=== PATIENT | female | born 1995 | race Two or more races ===

== ENCOUNTER → 2024-04-07 | Outpatient (CLI) | payer BC, SELFPAY ==
[2024-04-07 13:50] LABS: Basophils # (Auto) 0.1 Thou/mm3 (0.0-0.2); Basophils % (Auto) 1 % (0-2.5); Eosinophils # (Auto) 0.2 Thou/mm3 (0.0-0.5); Eosinophils % (Auto) 4 % (0-10); Hematocrit 28.3 % (36.0-46.0); Immature Granulocytes % (Auto) 0 % (0-0); Immature Granulocytes Auto 0.01 Thou/mm3 (0.00-0.00); Lymphocytes # (Auto) 1.7 Thou/mm3 (1.0-4.8); Lymphocytes % (Auto) 32 % (10-50); Mean Corpuscular HGB Conc 29.3 g/dl (31.0-37.0); Mean Corpuscular Hemoglobin 18.5 pg (25.0-35.0); Mean Corpuscular Volume 63 fL (80-100); Monocytes # (Auto) 0.4 Thou/mm3 (0.0-0.8); Monocytes % (Auto) 8 % (0-12); Neutrophils # (Auto) 2.8 Thou/mm3 (1.8-7.7); Neutrophils % (Auto) 54 % (37-80); Nucleated Red Blood Cell % 0 /100 WBC (0); Platelet Count 546 Thou/mm3 (140-440); RDW Standard Deviation 40.5 fL (36.4-46.3); Red Blood Count 4.48 Miln/mm3 (4.00-5.20); White Blood Count 5.2 Thou/mm3 (3.6-11.0)
[2024-04-07 13:53] LABS: Anion Gap 8 (7-16); BUN/Creatinine Ratio 14 Ratio (12-20); Blood Urea Nitrogen 10 mg/dL (9-23); Calcium 8.6 mg/dL (8.3-10.6); Chloride 105 mMol/L (98-107); Creatinine (Component) 0.7 mg/dL (0.6-1.3); Glucose 158 mg/dL (74-106); Osmolality,Calculated 279 (275-295); Potassium 4.2 mMol/L (3.4-5.1); Sodium 139 mMol/L (136-145); eGFR > 60 See Note
[2024-04-07 13:57] LABS: Hemoglobin 8.3 g/dL (12.0-16.0)
[2024-04-07 14:01] LABS: Folate 16.11 ng/mL (>5.38); Vitamin B12 331 pg/mL (211-911); Vitamin D 25 Hydroxy Total 7.8 ng/mL (7.3-40.2)
[2024-04-07 14:23] LABS: Ferritin 3 ng/mL (7.3-270.7); Iron 17 mcg/dL (50-170); Percent Iron Saturation 3 % (20-55); Total Iron Binding Capacity 485 mcg/dL (250-425); Unsaturated Iron Binding 468 (225-295)
== END | disposition home or self-care (01) ==
LOC: COPL 12:35
PROVIDERS: PCP Family Medicine; Referring Provider Family Medicine; Visit Provider Family Medicine
DX: D50.8 Other iron deficiency anemias (principal); R53.83 Other fatigue
CPT/HCPCS: 36415; 80048; 82306; 82607; 82728; 82746; 83540; 83550; 85025

== ENCOUNTER → 2024-04-29 | Outpatient (CLI) | payer BC, MEDICAID, SELFPAY ==
[2024-04-29 09:52] VITALS: BP 105/61; PULSE 87; RESP 14; TEMP 36.8; O2SAT 100; BMI 27.1
[2024-04-29] MEDS: ferumoxytoL (NON-ESRD) 510 MG in SODIUM CHLORIDE 0.9% 100 ML 234 MG IV (10:14)
[2024-04-29 11:14] VITALS: BP 108/64; PULSE 75; RESP 15; TEMP 36.6; O2SAT 100
== END | disposition home or self-care (01) ==
PROVIDERS: PCP Family Medicine; Referring Provider Family Medicine; Visit Provider Family Medicine
PROC: (CPT 96365; principal; 2024-04-29 09:30)
DX: D50.8 Other iron deficiency anemias (principal); K91.89 Other postprocedural complications and disorders of digestive system
CPT/HCPCS: 96365; J7050; Q0138

== ENCOUNTER → 2024-05-06 | Outpatient (CLI) | payer BC, MEDICAID, SELFPAY ==
[2024-05-06 09:30] VITALS: BP 128/67; PULSE 97; RESP 16; TEMP 36.6; O2SAT 100; BMI 26.9
[2024-05-06] MEDS: ferumoxytoL (NON-ESRD) 510 MG in SODIUM CHLORIDE 0.9% 100 ML 234 MG IV (09:55)
[2024-05-06 11:00] VITALS: BP 116/75; PULSE 77; RESP 16; TEMP 36.6; O2SAT 100
== END | disposition home or self-care (01) ==
PROVIDERS: PCP Family Medicine; Referring Provider Family Medicine; Visit Provider Family Medicine
PROC: (CPT 96365; principal; 2024-05-06 09:00)
DX: D50.8 Other iron deficiency anemias (principal); K91.89 Other postprocedural complications and disorders of digestive system
CPT/HCPCS: 96365; J7050; Q0138

== ENCOUNTER → 2024-05-24 | Outpatient (CLI) | payer BC, MEDICAID, SELFPAY ==
[2024-05-24 15:15] LABS: Basophils # (Auto) 0.1 Thou/mm3 (0.0-0.2); Basophils % (Auto) 1 % (0-2.5); Eosinophils # (Auto) 0.3 Thou/mm3 (0.0-0.5); Eosinophils % (Auto) 5 % (0-10); Hematocrit 36.3 % (36.0-46.0); Hemoglobin 11.5 g/dL (12.0-16.0); Immature Granulocytes % (Auto) 0 % (0-0); Immature Granulocytes Auto 0.01 Thou/mm3 (0.00-0.00); Lymphocytes # (Auto) 1.8 Thou/mm3 (1.0-4.8); Lymphocytes % (Auto) 28 % (10-50); Mean Corpuscular HGB Conc 31.7 g/dl (31.0-37.0); Mean Corpuscular Hemoglobin 24.3 pg (25.0-35.0); Mean Corpuscular Volume 77 fL (80-100); Monocytes # (Auto) 0.4 Thou/mm3 (0.0-0.8); Monocytes % (Auto) 7 % (0-12); Neutrophils # (Auto) 3.7 Thou/mm3 (1.8-7.7); Neutrophils % (Auto) 59 % (37-80); Nucleated Red Blood Cell % 0 /100 WBC (0); Platelet Count 383 Thou/mm3 (140-440); Red Blood Count 4.73 Miln/mm3 (4.00-5.20); White Blood Count 6.3 Thou/mm3 (3.6-11.0)
[2024-05-24 15:55] LABS: Alanine Aminotransferase 15 U/L (10-49); Albumin, Serum 4.1 gm/dL (3.5-5.0); Albumin/Globulin Ratio 1.5 (1.2-2.2); Alkaline Phosphatase 142 U/L (46-116); Anion Gap 9 (7-16); Aspartate Amino Transferase 22 U/L (0-34); BUN/Creatinine Ratio 20 Ratio (12-20); Bilirubin,Total 0.3 mg/dL (0.3-1.2); Blood Urea Nitrogen 14 mg/dL (9-23); Calcium 9.8 mg/dL (8.3-10.6); Calcium (Corrected) 9.8 mg/dL (8.5-10.1); Carbon Dioxide 27.3 mMol/L (20.0-31.0); Chloride 107 mMol/L (98-107); Creatinine (Component) 0.7 mg/dL (0.6-1.3); Globulin 2.7 gm/dL (2.3-3.5); Glucose 70 mg/dL (74-106); Osmolality,Calculated 283 (275-295); Potassium 4.2 mMol/L (3.4-5.1); Sodium 143 mMol/L (136-145); Total Protein 6.8 gm/dL (5.7-8.2); eGFR > 60 See Note
[2024-05-24 19:02] LABS: Ferritin 66 ng/mL (7.3-270.7); Iron 81 mcg/dL (50-170); Total Iron Binding Capacity 367 mcg/dL (250-425)
== END | disposition home or self-care (01) ==
LOC: COPL 14:03
PROVIDERS: PCP Family Medicine; Referring Provider Family Medicine; Visit Provider Family Medicine
DX: D50.8 Other iron deficiency anemias (principal)
CPT/HCPCS: 36415; 80053; 82728; 83540; 83550; 85025

== ENCOUNTER → 2024-07-13 | Outpatient (CLI) | payer BC, MEDICAID, SELFPAY ==
[2024-07-13 10:18] LABS: Basophils # (Auto) 0.1 Thou/mm3 (0.0-0.2); Basophils % (Auto) 1 % (0-2.5); Eosinophils # (Auto) 0.3 Thou/mm3 (0.0-0.5); Eosinophils % (Auto) 5 % (0-10); Hemoglobin 12.7 g/dL (12.0-16.0); Immature Granulocytes % (Auto) 0 % (0-0); Immature Granulocytes Auto 0.01 Thou/mm3 (0.00-0.00); Lymphocytes # (Auto) 1.7 Thou/mm3 (1.0-4.8); Lymphocytes % (Auto) 31 % (10-50); Mean Corpuscular HGB Conc 32.6 g/dl (31.0-37.0); Mean Corpuscular Hemoglobin 27.2 pg (25.0-35.0); Mean Corpuscular Volume 84 fL (80-100); Monocytes # (Auto) 0.6 Thou/mm3 (0.0-0.8); Monocytes % (Auto) 10 % (0-12); Neutrophils # (Auto) 2.9 Thou/mm3 (1.8-7.7); Neutrophils % (Auto) 53 % (37-80); Nucleated Red Blood Cell % 0 /100 WBC (0); Platelet Count 355 Thou/mm3 (140-440); Red Blood Count 4.67 Miln/mm3 (4.00-5.20); White Blood Count 5.5 Thou/mm3 (3.6-11.0)
[2024-07-13 10:42] LABS: Ferritin 8 ng/mL (7.3-270.7); Iron 41 mcg/dL (50-170); Percent Iron Saturation 10 % (20-55); Total Iron Binding Capacity 403 mcg/dL (250-425); Unsaturated Iron Binding 362 (225-295)
[2024-07-13 10:45] LABS: Vitamin B12 340 pg/mL (211-911)
== END | disposition home or self-care (01) ==
LOC: COPL 09:24
PROVIDERS: PCP Family Medicine; Referring Provider Family Medicine; Visit Provider Family Medicine
DX: D50.8 Other iron deficiency anemias (principal); R53.83 Other fatigue
CPT/HCPCS: 36415; 82607; 82728; 83540; 83550; 85025

== ENCOUNTER → 2024-09-28 | Outpatient (CLI) | payer BC, SELFPAY ==
[2024-09-28 16:11] LABS: Basophils # (Auto) 0.0 Thou/mm3 (0.0-0.2); Basophils % (Auto) 1 % (0-2.5); Eosinophils # (Auto) 0.1 Thou/mm3 (0.0-0.5); Eosinophils % (Auto) 2 % (0-10); Hematocrit 39.3 % (36.0-46.0); Hemoglobin 13.3 g/dL (12.0-16.0); Immature Granulocytes Auto 0.01 Thou/mm3 (0.00-0.00); Lymphocytes # (Auto) 2.4 Thou/mm3 (1.0-4.8); Lymphocytes % (Auto) 44 % (10-50); Mean Corpuscular HGB Conc 33.8 g/dl (31.0-37.0); Mean Corpuscular Hemoglobin 28.4 pg (25.0-35.0); Mean Corpuscular Volume 84 fL (80-100); Monocytes # (Auto) 0.4 Thou/mm3 (0.0-0.8); Monocytes % (Auto) 7 % (0-12); Neutrophils # (Auto) 2.6 Thou/mm3 (1.8-7.7); Neutrophils % (Auto) 46 % (37-80); Nucleated Red Blood Cell # 0.00 Thou/mm3 (0.00-0.00); Nucleated Red Blood Cell % 0 /100 WBC (0); Platelet Count 299 Thou/mm3 (140-440); RDW Standard Deviation 47.7 fL (36.4-46.3); Red Blood Count 4.68 Miln/mm3 (4.00-5.20); White Blood Count 5.5 Thou/mm3 (3.6-11.0)
[2024-09-28 16:26] LABS: Glucose Estimated Average 97 mg/dL (80-131); Hemoglobin A1C 5.0 % Hgb (4.8-6.0)
[2024-09-28 16:32] LABS: Ferritin 12 ng/mL (7.3-270.7); Iron 73 mcg/dL (50-170); Total Iron Binding Capacity 388 mcg/dL (250-425); Vitamin B12 407 pg/mL (211-911)
[2024-09-28 17:05] LABS: Alanine Aminotransferase 16 U/L (10-49); Albumin, Serum 4.4 gm/dL (3.5-5.0); Albumin/Globulin Ratio 1.5 (1.2-2.2); Alkaline Phosphatase 144 U/L (46-116); Anion Gap 6 (7-16); Aspartate Amino Transferase 27 U/L (0-34); BUN/Creatinine Ratio 8 Ratio (12-20); Beta HCG,Quantitative 4543 mIU/mL (<5.0); Bilirubin,Total 0.5 mg/dL (0.3-1.2); Blood Urea Nitrogen 6 mg/dL (9-23); Calcium 9.0 mg/dL (8.3-10.6); Calcium (Corrected) 9.0 mg/dL (8.5-10.1); Carbon Dioxide 23.9 mMol/L (20.0-31.0); Chloride 108 mMol/L (98-107); Creatinine (Component) 0.8 mg/dL (0.6-1.3); Globulin 3.0 gm/dL (2.3-3.5); Glucose 90 mg/dL (74-106); Osmolality,Calculated 273 (275-295); Potassium 3.8 mMol/L (3.4-5.1); Sodium 138 mMol/L (136-145); Thyroid Stimulating Hormone 1.25 uIU/mL (0.55-4.78); Total Protein 7.4 gm/dL (5.7-8.2); eGFR > 60 See Note
[2024-10-04 14:10] LABS: Insulin* 2.2 uIU/mL (< OR = 18.4)
== END | disposition home or self-care (01) ==
LOC: COPL 15:39
PROVIDERS: PCP Family Medicine; Referring Provider Family Medicine; Visit Provider Family Medicine
DX: N93.8 Other specified abnormal uterine and vaginal bleeding (principal); D50.8 Other iron deficiency anemias; E16.2 Hypoglycemia, unspecified
CPT/HCPCS: 36415; 80053; 82607; 82728; 83036; 83525; 83540; 83550; 84443; 84702; 85025

== ENCOUNTER → 2024-09-29 | Outpatient (CLI) | payer BC, SELFPAY ==
--- NOTE | 2024-09-29 14:18 | XR_ITS ---
Examination: OB Transvaginal ultrasound of the pelvis, complete Technique: Transvaginal sonographic images pelvis performed using foster scale imaging Exam date and time: September 29, 2024 1436 hours INDICATIONS: Vaginal bleeding beginning 3 days ago FINDINGS: Uterus 9.9 cm Empty intrauterine gestational sac lower uterine segment corresponding to 5 weeks 0 day gestational age, no pole, no cardiac activity Right ovary 2.6 cm arterial flow Left ovary 3.1 cm arterial flow 14 x 10 mm cyst IMPRESSION: Findings most consistent with spontaneous in progress, recommend short-term follow-up transvaginal pelvic sonography.
== END | disposition home or self-care (01) ==
PROVIDERS: PCP Family Medicine; Referring Provider Family Medicine; Visit Provider Family Medicine
DX: O20.0 Threatened abortion (principal); N93.8 Other specified abnormal uterine and vaginal bleeding
CPT/HCPCS: 76817

== ENCOUNTER → 2024-12-13 | Outpatient (CLI) | payer BC, SELFPAY ==
--- NOTE | 2024-12-13 11:55 | XR_ITS ---
Examination: Transvaginal ultrasound of the pelvis, complete Technique: Transvaginal sonographic images pelvis performed using foster scale imaging Exam date and time: December 13, 20242001 hours INDICATIONS: Heavy vaginal bleeding beginning 3 days ago. FINDINGS: Uterus 8.5 cm intrauterine gestational sac 0.3 cm corresponds to 5 weeks 0 days gestational age No pole, no cardiac activity Right ovary 2.8 cm arterial flow. Left ovary 3.1 cm arterial flow IMPRESSION: Empty intrauterine gestational sac corresponding to 5 weeks 0 days gestational age Recommend short-term follow-up transvaginal pelvic sonography.
[2024-12-13 13:57] LABS: Basophils # (Auto) 0.1 Thou/mm3 (0.0-0.2); Basophils % (Auto) 1 % (0-2.5); Eosinophils # (Auto) 0.2 Thou/mm3 (0.0-0.5); Eosinophils % (Auto) 3 % (0-10); Hematocrit 38.2 % (36.0-46.0); Hemoglobin 12.3 g/dL (12.0-16.0); Immature Granulocytes Auto 0.01 Thou/mm3 (0.00-0.00); Lymphocytes # (Auto) 2.4 Thou/mm3 (1.0-4.8); Lymphocytes % (Auto) 50 % (10-50); Mean Corpuscular HGB Conc 32.2 g/dl (31.0-37.0); Mean Corpuscular Hemoglobin 26.9 pg (25.0-35.0); Mean Corpuscular Volume 83 fL (80-100); Monocytes # (Auto) 0.4 Thou/mm3 (0.0-0.8); Monocytes % (Auto) 7 % (0-12); Neutrophils # (Auto) 1.9 Thou/mm3 (1.8-7.7); Neutrophils % (Auto) 39 % (37-80); Nucleated Red Blood Cell # 0.00 Thou/mm3 (0.00-0.00); Nucleated Red Blood Cell % 0 /100 WBC (0); Platelet Count 324 Thou/mm3 (140-440); RDW Standard Deviation 44.6 fL (36.4-46.3); Red Blood Count 4.58 Miln/mm3 (4.00-5.20); White Blood Count 4.9 Thou/mm3 (3.6-11.0)
[2024-12-13 14:23] LABS: Beta HCG,Quantitative 117 mIU/mL (<5.0); Thyroid Stimulating Hormone 0.99 uIU/mL (0.55-4.78)
== END | disposition home or self-care (01) ==
PROVIDERS: PCP Family Medicine; Referring Provider Family Medicine; Visit Provider Family Medicine
DX: O46.90 Antepartum hemorrhage, unspecified, unspecified trimester (principal)
CPT/HCPCS: 36415; 76830; 84443; 84702; 85025